=== PATIENT | female | born 1960 | race Caucasian/White ===

== ENCOUNTER 2017-12-24 16:26 | Observation (INO) | payer BC ==
[~2017-12-24] VITALS: Ht 172.7 cm; Wt 94.5 kg
[~2017-12-24 16:26] MED LIST: DIAZ5 PO; NORV5TAB PO; PERC5TAB12 PO
[2017-12-24 16:27] VITALS: BP 167/99; PULSE 112; RESP 14; TEMP 98.3; O2SAT 96
[2017-12-24] MEDS ORDERED: AMLO10 PO (17:51)
[2017-12-24] MEDS ORDERED: ZOLO25TA PO (17:51)
[2017-12-24] MEDS ORDERED: ALPR0.5T3 PO (17:51)
--- NOTE | 2017-12-24 17:58 | PD ---
HPI Chief Complaint: GI Complaint Time Seen by Provider: 17:51 Travel History International Travel<30 days: No Contact w/Intl Traveler<30days: No Traveled to known affect area: No History of Present Illness HPI 54-year-old female patient with history of hypertension, presents to the ER today with 1 day history of nausea, vomiting, diarrhea, general weakness and dizziness. Her states that her son-in-law has had some similar symptoms as well. She denies any fevers or any other issues. Modifying Factors: None Associated Signs & Symptoms: Nausea, vomiting, dizziness, diarrhea Risk Factors: Possible sick contact PFSH Past Medical History Anxiety: Yes Cardiovascular Problems: Yes (HTN) Diminished Hearing: No Hypertension: Yes Psychiatric: Yes Tetanus Vaccination: < 5 Years Influenza Vaccination: No Menopausal: Yes : 1 Para: 1 Past Surgical History Genitourinary Surgery: Yes (URETERAL REFLUX REPAIR) Hysterectomy: Yes Social History Alcohol Use: Yes (RARELY) Tobacco Use: No (quit 3 years ago) Substance Use: No Allergies-Medications (Allergen,Severity, Reaction): Coded Allergies: Sulfa (Sulfonamide Antibiotics) (Verified Allergy, Intermediate, rash, 10/29) Reported Meds & Prescriptions Reported Meds & Active Scripts Active Reported Zoloft (Sertraline HCl) 25 Mg Tab 25 Mg PO HS Alprazolam 0.5 Mg Tab 0.5 Mg PO Q8H PRN Norvasc (Amlodipine Besylate) 10 Mg Tab 10 Mg PO HS Review of Systems Except as stated in HPI: all other systems reviewed are Neg Physical Exam Narrative GENERAL: Well-developed elderly white female patient currently mild distress. Awake and oriented 3. SKIN: Focused skin assessment warm/dry. HEAD: Atraumatic. Normocephalic. EYES: Pupils equal and round. No scleral icterus. No injection or drainage. ENT: No nasal bleeding or discharge. Mucous membranes pink and moist. NECK: Trachea midline. No JVD. Supple. CARDIOVASCULAR: Regular rate and rhythm. No murmur appreciated. RESPIRATORY: No accessory muscle use. Clear to auscultation. Breath sounds equal bilaterally. GASTROINTESTINAL: Abdomen soft, non-tender, nondistended. Hepatic and splenic margins not palpable. MUSCULOSKELETAL: No obvious deformities. No clubbing. No cyanosis. No edema. NEUROLOGICAL: Awake and alert. No obvious cranial nerve deficits. Motor grossly within normal limits. Normal speech. PSYCHIATRIC: Appropriate mood and affect; insight and judgment normal. Data Data Last Documented VS Vital Signs Date Time Temp Pulse Resp B/P (MAP) Pulse Ox O2 Delivery O2 Flow Rate FiO2 12/24/17 17:50 16 12/24/17 16:27 98.3 112 167/99 (121) 96 Orders Orders Complete Blood Count With Diff (12/24/17 16:42) Comprehensive Metabolic Panel (12/24/17 16:42) Lipase (12/24/17 16:42) Prothrombin Time / Inr (Pt) (12/24/17 16:42) Act Partial Throm Time (Ptt) (12/24/17 16:42) Urinalysis - C+S If Indicated (12/24/17 16:42) Electrocardiogram (12/24/17 16:42) Influenzae A/B Antigen (12/24/17 16:42) Ckmb (Isoenzyme) Profile (12/24/17 16:42) Troponin I (12/24/17 16:42) Sodium Chlor 0.9% 1000 Ml Inj (Ns 1000 M (12/24/17 18:00) Ondansetron Inj (Zofran Inj) (12/24/17 18:00) Labs Laboratory Tests Test 12/24/17 18:00 White Blood Count 10.7 TH/MM3 Red Blood Count 4.99 MIL/MM3 Hemoglobin 15.2 GM/DL Hematocrit 43.5 % Mean Corpuscular Volume 87.1 FL Mean Corpuscular Hemoglobin 30.4 PG Mean Corpuscular Hemoglobin Concent 34.9 % Red Cell Distribution Width 12.8 % Platelet Count 209 TH/MM3 Mean Platelet Volume 8.6 FL Neutrophils (%) (Auto) 94.6 % Lymphocytes (%) (Auto) 2.8 % Monocytes (%) (Auto) 2.0 % Eosinophils (%) (Auto) 0.4 % Basophils (%) (Auto) 0.2 % Neutrophils # (Auto) 10.1 TH/MM3 Lymphocytes # (Auto) 0.3 TH/MM3 Monocytes # (Auto) 0.2 TH/MM3 Eosinophils # (Auto) 0.0 TH/MM3 Basophils # (Auto) 0.0 TH/MM3 CBC Comment DIFF FINAL Differential Comment Prothrombin Time 9.4 SEC Prothromb Time International Ratio 0.9 RATIO Activated Partial Thromboplast Time 21.7 SEC Blood Urea Nitrogen 21 MG/DL Creatinine 0.89 MG/DL Random Glucose 126 MG/DL Total Protein 7.9 GM/DL Albumin 3.8 GM/DL Calcium Level 8.4 MG/DL Alkaline Phosphatase 83 U/L Aspartate Amino Transf (AST/SGOT) 23 U/L Alanine Aminotransferase (ALT/SGPT) 35 U/L Total Bilirubin 0.5 MG/DL Sodium Level 139 MEQ/L Potassium Level 3.7 MEQ/L Chloride Level 105 MEQ/L Carbon Dioxide Level 25.3 MEQ/L Anion Gap 9 MEQ/L Estimat Glomerular Filtration Rate 65 ML/MIN Total Creatine Kinase 96 U/L Troponin I LESS THAN 0.02 NG/ML Lipase 144 U/L MDM Medical Decision Making Medical Screen Exam Complete: Yes Emergency Medical Condition: Yes Medical Record Reviewed: Yes Interpretation(s) Laboratory Tests Test 12/24/17 18:00 Neutrophils (%) (Auto) 94.6 % (16.0-70.0) Lymphocytes (%) (Auto) 2.8 % (9.0-44.0) Neutrophils # (Auto) 10.1 TH/MM3 (1.8-7.7) Lymphocytes # (Auto) 0.3 TH/MM3 (1.0-4.8) Prothrombin Time 9.4 SEC (9.8-11.6) Activated Partial Thromboplast Time 21.7 SEC (24.3-30.1) Blood Urea Nitrogen 21 MG/DL (7-18) Random Glucose 126 MG/DL (74-106) Calcium Level 8.4 MG/DL (8.5-10.1) Estimat Glomerular Filtration Rate 65 ML/MIN (>89) Troponin I LESS THAN 0.02 NG/ML Differential Diagnosis Gastroenteritis versus influenza versus gastritis versus pancreatitis versus dehydration versus metabolic issues Narrative Course Influenza testing is unremarkable. Abdomen is fairly benign. Lab work did not show significant leukocytosis or dehydration. Patient was given IV fluids and Zofran in the ER. Physician Communication Physician Communication Case is signed out to Dr. Jacobs at 7 PM pending UA. Reevaluation for disposition. Diagnosis Primary Impression: Nausea and vomiting Condition: Stable Marcello Juárez MD Dec 24, 2017 17:58
[2017-12-24] MEDS ORDERED: ONDANSETRON HCL 4 MG/2 ML VIAL IV PUSH ONE (18:00)
[2017-12-24] MEDS ORDERED: SODIUM CHLOR 0.9% 1000 ML INJ 1,000 ML IV ONE (18:00)
[2017-12-24 18:16] LABS: AUTOMATED NEUTROPHIL # 10.1 TH/MM3 (1.8-7.7); BASOPHIL % 0.2 % (0.0-2.0); EOSINOPHIL % 0.4 % (0.0-4.0); HEMATOCRIT 43.5 % (35.0-46.0); HEMOGLOBIN 15.2 GM/DL (11.6-15.3); LYMPH % 2.8 % (9.0-44.0); LYMPHOCYTE # 0.3 TH/MM3 (1.0-4.8); MEAN CELL VOLUME 87.1 FL (80.0-100.0); MEAN CORPUSCULAR HEMOGLOBIN 30.4 PG (27.0-34.0); MEAN CORPUSCULAR HGB CONC 34.9 % (32.0-36.0); MEAN PLATELET VOLUME 8.6 FL (7.0-11.0); MONOCYTE # 0.2 TH/MM3 (0-0.9); NEUT % 94.6 % (16.0-70.0); PLATELET COUNT 209 TH/MM3 (150-450); RED BLOOD COUNT 4.99 MIL/MM3 (4.00-5.30); RED CELL DISTRIBUTION WIDTH 12.8 % (11.6-17.2); WHITE BLOOD COUNT 10.7 TH/MM3 (4.0-11.0)
[2017-12-24 18:26] LABS: INTERNATIONAL NORMALIZED RATIO 0.9 RATIO; PROTHROMBIN TIME - PATIENT 9.4 SEC (9.8-11.6)
[2017-12-24 18:39] LABS: ALBUMIN 3.8 GM/DL (3.4-5.0); ALT (GPT) 35 U/L (10-53); AST (GOT) 23 U/L (15-37); BICARBONATE 25.3 MEQ/L (21.0-32.0); BLOOD UREA NITROGEN 21 MG/DL (7-18); CALCIUM 8.4 MG/DL (8.5-10.1); CHLORIDE 105 MEQ/L (98-107); CREATININE 0.89 MG/DL (0.50-1.00); GLOMERULAR FILTRATION RATE 65 ML/MIN (>89); GLUCOSE,RANDOM 126 MG/DL (74-106); SODIUM (NA) 139 MEQ/L (136-145)
[2017-12-24 18:43] LABS: ALKALINE PHOSPHATASE 83 U/L (45-117); TOTAL BILIRUBIN ADULT 0.5 MG/DL (0.2-1.0); TOTAL PROTEIN 7.9 GM/DL (6.4-8.2); TROPONIN I LESS THAN 0.02 NG/ML (0.02-0.05)
[2017-12-24 19:29] VITALS: BP 172/88; PULSE 100; RESP 18; O2SAT 96
--- NOTE | 2017-12-24 19:48 | PD ---
Physical Exam Narrative Received sign out from previous team to follow up with UA and reevaluate. 57yo F with HTN here with c/o nausea, vomiting, and nonbloody diarrhea. Pt has mild epigastric/xiphoid process region pain. Rest of abdominal exam is unremarkable. Labs reviewed, no leukocytosis. H/H normal. BUN/creatinine ratio mildly elevated at 21/0.89. Troponin negative. Lipase negative. Influenza negative. Zofran, protonix and NS IVF given. HR improved to 90s after NS IVF. Pt currently denies any fever, chest pain, sob. Pt given water and tolerating PO. UA negative for leukocyte. +Ketone. Pt reevaluated at bedside and said she has been having this discomfort in xyphoid process, lower mid sternum for a few days. Now she said she has been having some sob with exertion for the last few days. Said this was new. Pt follows with Dr. Mascorro and last stress test was 10/2017 and she said it was ok. Pt does have new EKG changes so will admit for observation for chest pain center. Will give aspirin. Data Data Last Documented VS Vital Signs Date Time Temp Pulse Resp B/P (MAP) Pulse Ox O2 Delivery O2 Flow Rate FiO2 12/24/17 19:29 100 18 172/88 (116) 96 Room Air 12/24/17 16:27 98.3 Orders Orders Complete Blood Count With Diff (12/24/17 16:42) Comprehensive Metabolic Panel (12/24/17 16:42) Lipase (12/24/17 16:42) Prothrombin Time / Inr (Pt) (12/24/17 16:42) Act Partial Throm Time (Ptt) (12/24/17 16:42) Urinalysis - C+S If Indicated (12/24/17 16:42) Influenzae A/B Antigen (12/24/17 16:42) Ckmb (Isoenzyme) Profile (12/24/17 16:42) Troponin I (12/24/17 16:42) Sodium Chlor 0.9% 1000 Ml Inj (Ns 1000 M (12/24/17 18:00) Ondansetron Inj (Zofran Inj) (12/24/17 18:00) Pantoprazole Inj (Protonix Inj) (12/24/17 20:00) Electrocardiogram (12/24/17 ) Chest, Single Ap (12/24/17 ) Aspirin (Aspirin) (12/24/17 21:30) Labs Laboratory Tests Test 12/24/17 18:00 12/24/17 19:00 White Blood Count 10.7 TH/MM3 Red Blood Count 4.99 MIL/MM3 Hemoglobin 15.2 GM/DL Hematocrit 43.5 % Mean Corpuscular Volume 87.1 FL Mean Corpuscular Hemoglobin 30.4 PG Mean Corpuscular Hemoglobin Concent 34.9 % Red Cell Distribution Width 12.8 % Platelet Count 209 TH/MM3 Mean Platelet Volume 8.6 FL Neutrophils (%) (Auto) 94.6 % Lymphocytes (%) (Auto) 2.8 % Monocytes (%) (Auto) 2.0 % Eosinophils (%) (Auto) 0.4 % Basophils (%) (Auto) 0.2 % Neutrophils # (Auto) 10.1 TH/MM3 Lymphocytes # (Auto) 0.3 TH/MM3 Monocytes # (Auto) 0.2 TH/MM3 Eosinophils # (Auto) 0.0 TH/MM3 Basophils # (Auto) 0.0 TH/MM3 CBC Comment DIFF FINAL Differential Comment Prothrombin Time 9.4 SEC Prothromb Time International Ratio 0.9 RATIO Activated Partial Thromboplast Time 21.7 SEC Blood Urea Nitrogen 21 MG/DL Creatinine 0.89 MG/DL Random Glucose 126 MG/DL Total Protein 7.9 GM/DL Albumin 3.8 GM/DL Calcium Level 8.4 MG/DL Alkaline Phosphatase 83 U/L Aspartate Amino Transf (AST/SGOT) 23 U/L Alanine Aminotransferase (ALT/SGPT) 35 U/L Total Bilirubin 0.5 MG/DL Sodium Level 139 MEQ/L Potassium Level 3.7 MEQ/L Chloride Level 105 MEQ/L Carbon Dioxide Level 25.3 MEQ/L Anion Gap 9 MEQ/L Estimat Glomerular Filtration Rate 65 ML/MIN Total Creatine Kinase 96 U/L Troponin I LESS THAN 0.02 NG/ML Lipase 144 U/L Urine Color LIGHT-YELLOW Urine Turbidity CLEAR Urine pH 6.5 Urine Specific [place] 1.011 Urine Protein NEG mg/dL Urine Glucose (UA) NEG mg/dL Urine Ketones 10 mg/dL Urine Occult Blood NEG Urine Nitrite NEG Urine Bilirubin NEG Urine Urobilinogen LESS THAN 2.0 MG/DL Urine Leukocyte Esterase NEG Urine RBC 2 /hpf Urine Squamous Epithelial Cells 1 /hpf Microscopic Urinalysis Comment CULT NOT INDICATED [facility] Supervised Visit with CHARLES: No Interpretation(s) EKG: NSR 83bpm. Normal axis. TWI III, V3. Nonspecific ST depression diffusely. Diagnosis Primary Impression: Chest pain Qualified Codes: R07.9 - Chest pain, unspecified Admitting Information Admitting Physician Requests: Observation Additional Instruction: Please follow up with your primary care physician in 2-3 days. Return to the ED if symptoms worsen. Med/Other Pt SpecificInfo: No Change to Meds Marian Jacobs DO Dec 24, 2017 19:48
[2017-12-24 19:59] LABS: BILIRUBIN, URINE NEG (NEG); BLOOD, URINE NEG (NEG); GLUCOSE,URINE NEG (NEG); KETONE, URINE 10 mg/dL (NEG); NITRITE,URINE NEG (NEG); PH, URINE 6.5 (5.0-8.5); SQUAMOUS EPITHELIAL CELL URINE 1 /hpf (0-5); URINE COLOR LIGHT-YELLOW (YELLW/STRAW); URINE LEUKOCYTE ESTERASE NEG (NEG)
[2017-12-24] MEDS ORDERED: PANTOPRAZOLE SODIUM 40 MG VIAL IV PUSH ONE (20:00)
[2017-12-24] MEDS ORDERED: ASPIRIN 325 MG TAB PO ONE (21:30)
[2017-12-24] MEDS ORDERED: SODIUM CHLORIDE 0.9% FLUSH 10 ML FLUSH IV FLUSH PRN (22:30)
--- NOTE | 2017-12-24 22:30 | RADRPT ---
EXAM DATE/TIME: 12/24/2017 21:43 [place] COMPARISON: No previous studies available for comparison. INDICATIONS : Chest pain. MEDICAL HISTORY : None. SURGICAL HISTORY : None. ENCOUNTER: Initial ACUITY: 3 days PAIN SCORE: 6/10 LOCATION: middle chest. FINDINGS: A single view of the chest demonstrates the lungs to be symmetrically aerated without evidence of mas s, infiltrate or effusion. The cardiomediastinal contours are unremarkable. Osseous structures are intact. CONCLUSION: No acute disease. Carlo Mcclain MD on December 24, 2017 at 22:27 Board Certified Radiologist. This report was verified electronically.
[2017-12-24] MEDS ORDERED: SERTRALINE HCL 50 MG TAB PO ONE (23:00)
[2017-12-24 23:59] VITALS: BP 124/70; PULSE 84; RESP 17; TEMP 99; O2SAT 93
[2017-12-25] VITALS (8 sets, daily range): BP systolic 114–136; BP diastolic 62–73; PULSE 71–84; RESP 17–24; TEMP 98.5–99.6; O2SAT 91–96
[2017-12-25] MEDS ORDERED: SODIUM CHLOR 0.9% 1000 ML INJ 1,000 ML IV SCH (09:29)
[2017-12-25] MEDS ORDERED: ONDANSETRON HCL 4 MG/2 ML VIAL IV PUSH PRN (09:30)
[2017-12-25] MEDS ORDERED: ALPRAZolam 0.5 MG TAB PO PRN (09:30)
--- NOTE | 2017-12-25 09:53 | HHI.HP ---
[facility] Primary Care Physician Dillon Jaramillo MD Chief Complaint Chest pain, nausea, vomiting, and diarrhea History of Present Illness This is a 57-year-old female with history of hypertension that presents with complaints of chest pain and GI upset. States that she has been having intermittent chest discomfort for the past week that feels like a dull ache. Points to the epigastric/subxiphoid region. States the last couple minutes in the time shortness of breath. She states she has had shortness of breath with walking for the last 2 weeks. Nothing in particular seems to bring on the chest discomfort. Also patient states that 2 days ago she began having diarrhea which she describes multiple episodes of large volume of watery stool. Then yesterday she was nauseous and vomited several times. Nonbilious nonbloody. She has had no further emesis while in the chest pain center but states she has had several watery bowel movements. She had been in [place] and was flying back when her GI symptoms began. She has since discovered that her daughter and son-in-law have similar symptoms. States she follows Dr. Mascorro and has done so for years secondary to an arrhythmia. Does not know further information. Believes she had a stress test October 2017 but does not know the results. Review of Systems General: Patient denies fevers, chills. Had recent travel to [place]. Began having nausea vomiting and diarrhea while coming back from [place]. HEENT: Patient denies headache, sore throat, difficulty swallowing. Cardiovascular: Has the chest discomfort as mentioned above. Denies sensation of heart beating rapidly or irregularly. No syncope. Denies diaphoresis. Respiratory: She has had shortness of breath with walking for the last 2 weeks. Denies inspirational chest discomfort. Denies coughing wheezing or hemoptysis. GI: Patient has had nausea, vomiting, diarrhea. Patient denies abdominal pain and bloody stools. Musculoskeletal: Patient denies joint pain or edema. Denies calf pain or edema. Neurovascular: Patient denies numbness, tingling, weakness in extremities. Denies headache. Endocrine: Denies polyuria and polydipsia. Hematologic: Denies easy bruising. Skin: Denies rash or itching. Past Family Social History Allergies: Coded Allergies: Sulfa (Sulfonamide Antibiotics) (Verified Allergy, Intermediate, rash, 10/29) Past Medical History Hypertension and anxiety. Denies hyperlipidemia, diabetes, and known CAD. Past Surgical History Hysterectomy. Reported Medications Reported Meds & Active Scripts Active Reported Zoloft (Sertraline HCl) 25 Mg Tab 25 Mg PO HS Alprazolam 0.5 Mg Tab 0.5 Mg PO Q8H PRN Norvasc (Amlodipine Besylate) 10 Mg Tab 10 Mg PO HS Active Ordered Medications Current Medications Medications (Trade) Dose Ordered Sig/[place] Route Start Time Stop Time Status Last Admin (NS Flush) 2 ml UNSCH PRN IV FLUSH 12/24/17 22:30 (NS Flush) 2 ml BID IV FLUSH 12/25/17 09:00 Sodium Chloride 1,000 ml @ 125 mls/hr Q8H IV 12/25/17 09:29 12/25/17 17:28 UNV (Zofran Inj) 4 mg Q6HR PRN IV PUSH 12/25/17 09:30 UNV (Xanax) 0.5 mg Q8H PRN PO 12/25/17 09:30 UNV (Norvasc) 10 mg HS PO 12/25/17 21:00 UNV (Zoloft) 25 mg HS PO 12/25/17 21:00 UNV Family History Denies family history of CAD. Social History Patient quit smoking 3 years ago. Rarely has alcohol. Denies illicit drugs. Physical Exam Vital Signs Vital Signs Date Time Temp Pulse Resp B/P (MAP) Pulse Ox O2 Delivery O2 Flow Rate FiO2 12/25/17 07:36 99.6 84 18 114/70 (85) 95 12/25/17 03:16 84 12/25/17 03:03 99.6 84 24 127/62 (83) 91 12/25/17 00:25 94 12/24/17 23:59 99.0 84 17 124/70 (88) 93 12/24/17 23:44 12/24/17 19:29 100 18 172/88 (116) 96 Room Air 12/24/17 17:50 16 12/24/17 16:27 98.3 112 14 167/99 (121) 96 Physical Exam GENERAL: This is a well-nourished, well-developed patient, in no apparent distress. Patient speaks in clear complete sentences. Patient is pleasant. HEENT: Head is atraumatic and normocephalic. Neck is supple without lymphadenopathy and trachea is midline. No JVD or carotid bruits. CARDIOVASCULAR: Regular rate and rhythm without murmurs, gallops, or rubs. RESPIRATORY: Clear to auscultation. Breath sounds equal bilaterally. No wheezes , rales, or rhonchi. Chest wall is nontender. No use of accessory muscles. GASTROINTESTINAL: Abdomen is nontender, nondistended. Abdomen soft. No obvious pulsatile mass or bruit. No CVA tenderness. Strong femoral pulses bilaterally. Normal bowel sounds in all quadrants. MUSCULOSKELETAL: Patient is moving upper and lower extremities freely. No calf tenderness or edema, no Homans sign. Strong pulses in upper and lower extremities. NEUROLOGICAL: Patient is alert and oriented. Cranial nerves 2-12 are grossly intact. No focal deficits and speech is clear. SKIN: No rash and turgor is normal. Laboratory Laboratory Tests Test 12/24/17 18:00 12/24/17 19:00 12/24/17 23:45 12/25/17 03:15 White Blood Count 10.7 Red Blood Count 4.99 Hemoglobin 15.2 Hematocrit 43.5 Mean Corpuscular Volume 87.1 Mean Corpuscular Hemoglobin 30.4 Mean Corpuscular Hemoglobin Concent 34.9 Red Cell Distribution Width 12.8 Platelet Count 209 Mean Platelet Volume 8.6 Neutrophils (%) (Auto) 94.6 Lymphocytes (%) (Auto) 2.8 Monocytes (%) (Auto) 2.0 Eosinophils (%) (Auto) 0.4 Basophils (%) (Auto) 0.2 Neutrophils # (Auto) 10.1 Lymphocytes # (Auto) 0.3 Monocytes # (Auto) 0.2 Eosinophils # (Auto) 0.0 Basophils # (Auto) 0.0 CBC Comment DIFF FINAL Differential Comment Prothrombin Time 9.4 Prothromb Time International Ratio 0.9 Activated Partial Thromboplast Time 21.7 Blood Urea Nitrogen 21 Creatinine 0.89 Random Glucose 126 Total Protein 7.9 Albumin 3.8 Calcium Level 8.4 Alkaline Phosphatase 83 Aspartate Amino Transf (AST/SGOT) 23 Alanine Aminotransferase (ALT/SGPT) 35 Total Bilirubin 0.5 Sodium Level 139 Potassium Level 3.7 Chloride Level 105 Carbon Dioxide Level 25.3 Anion Gap 9 Estimat Glomerular Filtration Rate 65 Total Creatine Kinase 96 Troponin I LESS THAN 0.02 LESS THAN 0.02 LESS THAN 0.02 Lipase 144 Urine Color LIGHT-YELLOW Urine Turbidity CLEAR Urine pH 6.5 Urine Specific [place] 1.011 Urine Protein NEG Urine Glucose (UA) NEG Urine Ketones 10 Urine Occult Blood NEG Urine Nitrite NEG Urine Bilirubin NEG Urine Urobilinogen LESS THAN 2.0 Urine Leukocyte Esterase NEG Urine RBC 2 Urine Squamous Epithelial Cells 1 Microscopic Urinalysis Comment CULT NOT INDICATED Date/Time Source Procedure Growth Status 12/24/17 18:00 Nasal Washing Influenza Types A,B Antigen (ADOLFO) - Final NEGATIVE FOR FLU A AND B ANTIGEN.... Complete Result Diagram: 12/24/17 1800 12/24/17 1800 Imaging Last 48 hours Impressions Chest X-Ray 12/24/17 0000 Signed Impressions: Service Date/Time: Sunday, December 24, 2017 21:43 - CONCLUSION: No acute disease. Carlo Mcclain MD Course EKGs are sinus rhythm with nonspecific inferolateral ST changes. Caprini VTE Risk Assessment Caprini VTE Risk Assessment: No/Low Risk (score <= 1) Caprini Risk Assessment Model Point Value = 1 Point Value = 2 Point Value = 3 Point Value = 5 Age 41-60 Minor surgery BMI > 25 kg/m2 Swollen legs Varicose veins or History of unexplained or recurrent spontaneous Oral contraceptives or hormone replacement Sepsis (< 1 month) Serious lung disease, including pneumonia (< 1 month) Abnormal pulmonary function Acute myocardial infarction Congestive heart failure (< 1 month) History of inflammatory bowel disease Medical patient at bed rest Age 61-74 Arthroscopic surgery Major open surgery (> 45 min) Laparoscopic surgery (> 45 min) Malignancy Confined to bed (> 72 hours) Immobilizing plaster cast Central venous access Age >= 75 History of VTE Family history of VTE Factor V Leiden Prothrombin [id number] Lupus anticoagulant Anticardiolipin antibodies Elevated serum homocysteine Heparin-induced thrombocytopenia Other congenital or acquired thrombophilia Stroke (< 1 month) Elective arthroplasty Hip, pelvis, or leg fracture Acute spinal cord injury (< 1 month) Prophylaxis Regimen Total Risk Factor Score Risk Level Prophylaxis Regimen 0-1 Low Early ambulation 2 Moderate Order ONE of the following: *Sequential Compression Device (SCD) *Heparin 5000 units SQ BID 3-4 Higher Order ONE of the following medications: *Heparin 5000 units SQ TID *Enoxaparin/Lovenox 40 mg SQ daily (WT < 150 kg, CrCl > 30 mL/min) *Enoxaparin/Lovenox 30 mg SQ daily (WT < 150 kg, CrCl > 10-29 mL/min) *Enoxaparin/Lovenox 30 mg SQ BID (WT < 150 kg, CrCl > 30 mL/min) AND/OR *Sequential Compression Device (SCD) 5 or more Highest Order ONE of the following medications: *Heparin 5000 units SQ TID (Preferred with Epidurals) *Enoxaparin/Lovenox 40 mg SQ daily (WT < 150 kg, CrCl > 30 mL/min) *Enoxaparin/Lovenox 30 mg SQ daily (WT < 150 kg, CrCl > 10-29 mL/min) *Enoxaparin/Lovenox 30 mg SQ BID (WT < 150 kg, CrCl > 30 mL/min) AND *Sequential Compression Device (SCD) Assessment and Plan Assessment and Plan * Chest pain: Patient has had serial cardiac enzymes and EKGs for ruling out purposes. She was seen by Dr. Winchester of cardiology and the chest pain center. I discussed this patient with Dr. ortega who is covering for Dr. Mascorro and he has requested that the patient be admitted to [facility] and consult him and he will see the patient shortly. Patient is agreeable to this plan. * Hypertension: We will resume her medication. * Likely viral illness: Patient says nausea vomiting and diarrhea. There are sick contacts. We will give IV hydration. Patient is stable at this time. She is agreeable to this plan. Nixon Fermin Dec 25, 2017 09:53
[2017-12-25] MEDS ORDERED: PILL SPLITTER OTHER PRN (11:30)
[2017-12-25] MEDS: SODIUM CHLORIDE 0.9% FLUSH 10 ML FLUSH IV FLUSH SCH ×2 (11:30→20:36)
--- NOTE | 2017-12-25 18:04 | EKG ---
Date Performed: 12/25/2017 Time Performed: 03:10:34 PTAGE: 57 years EKG: Sinus rhythm WITH FIRST DEGREE AV BLOCK NONSPECIFIC ST & T-WAVE ABNORMALITY ABNORMAL ECG Since PREVIOUS TRACING , no significant change noted PREVIOUS TRACIN12/24/2017 23.53 DOCTOR: Dolly Winchester Interpretating Date/Time 12/25/2017 18:03:11
--- NOTE | 2017-12-25 18:05 | EKG ---
Date Performed: 12/24/2017 Time Performed: 23:53:51 PTAGE: 57 years EKG: Sinus rhythm NONSPECIFIC ST & T-WAVE ABNORMALITY BORDERLINE ECG Since PREVIOUS TRACING , no significant change noted PREVIOUS TRACIN06/25/2014 13.20 DOCTOR: Dolly Winchester Interpretating Date/Time 12/25/2017 18:04:41
--- NOTE | 2017-12-25 18:09 | EKG ---
Date Performed: 12/24/2017 Time Performed: 21:17:46 PTAGE: 57 years EKG: Sinus rhythm WITH FIRST DEGREE AV BLOCK NONSPECIFIC ST & T-WAVE ABNORMALITY ABNORMAL ECG Since PREVIOUS TRACING , no significant change noted DOCTOR: Dolly Winchester Interpretating Date/Time 12/25/2017 18:06:42
--- NOTE | 2017-12-25 18:57 | MB ---
cc: YEISON TRAMMELL MD DATE OF CONSULTATION 12/25/17 HISTORY OF PRESENT ILLNESS Ms. Roberts is a 57 year old white female with history of hypertension, of bicuspid aortic valve who presented with nausea, vomiting, diarrhea and substernal chest discomfort. She was returning from a [place] trip when her symptoms started. Her daughter and her son-in-law had similar symptoms. The patient is currently pain free. PAST MEDICAL HISTORY 1. Hypertension 2. Previous chest pain, palpitations, 3. Shortness of breath. 4. Bicuspid aortic valve. 5. Anxiety depression, 6. Hysterectomy, 7. Bladder surgery 8. Right knee surgery. MEDICATIONS 1. Norvasc. 2. Alprazolam. 3. Zoloft. SOCIAL HISTORY The patient does not smoke but used to smoke in the past. She drinks alcohol occasionally. She quit smoking in May 2014. ALLERGIES SULFA FAMILY HISTORY Negative for heart disease. REVIEW OF SYSTEMS Otherwise negative. PHYSICAL EXAMINATION VITAL SIGNS: Blood pressure 128/65, pulse 71 and regular. HEENT: Negative. 2+ carotid upstrokes. No bruits. LUNGS: Clear. HEART: Regular with no murmur, gallop or rub. ABDOMEN: Soft, no bruits. EXTREMITIES: Without edema. 2+ distal pulses NEUROLOGIC" Grossly nonfocal. CARDIOLOGY STUDIES EKG was reviewed and showed normal sinus rhythm with normal axis intervals and nonspecific ST-T changes. LABORATORY DATA Hemoglobin 15.2, potassium 3.7, creatinine 0.9, troponin negative x3. AST and ALT normal. DIAGNOSES 1. Atypical chest pain. 2. Suspected viral illness with vomiting and diarrhea. 3. Hypertension 4. Anxiety and depression DISPOSITION Ms. Roberts presented with atypical chest discomfort. She has been ruled out for myocardial infarction by enzymes. Her chest pain is now resolved. She wishes to be discharged home as soon as possible. She has been hydrated due to her recent nausea and vomiting resulting in dehydration. I will follow her for cardiology during hospitalization. She will be scheduled for an outpatient stress test after discharge. She will follow up with Dr. Mascorro, her primary wrecker operator, in his office in the near future as well. Yeison Trammell MD OMaureen/ /5:59 PM /6:29 PM
[2017-12-25] MEDS ORDERED: SERTRALINE HCL 50 MG TAB PO SCH (21:00)
[2017-12-26 00:29] VITALS: BP 142/64; PULSE 79; RESP 17; TEMP 98.5; O2SAT 95
[2017-12-26 05:30] VITALS: BP 105/57; PULSE 79; RESP 17; TEMP 97.8; O2SAT 95
[2017-12-26] MEDS: SODIUM CHLORIDE 0.9% FLUSH 10 ML FLUSH IV FLUSH SCH (07:31)
[2017-12-26 08:11] VITALS: PULSE 76
[2017-12-26 08:39] VITALS: BP 120/65; PULSE 68; RESP 20; TEMP 98.1; O2SAT 93
--- NOTE | 2017-12-26 10:20 | HHI.DS ---
Discharge Summary Admission Date Dec 24, 2017 at 22:18 Discharge Date: Dec 26, 2017 Admitting Diagnosis Chest pain (1) Nausea ICD Code: R11.0 - Nausea (2) Atypical chest pain ICD Code: R07.89 - Other chest pain Procedures No procedures Brief History - From Admission This is a 57-year-old female with history of hypertension that presents with complaints of chest pain and GI upset. States that she has been having intermittent chest discomfort for the past week that feels like a dull ache. Points to the epigastric/subxiphoid region. States the last couple minutes in the time shortness of breath. She states she has had shortness of breath with walking for the last 2 weeks. Nothing in particular seems to bring on the chest discomfort. Also patient states that 2 days ago she began having diarrhea which she describes multiple episodes of large volume of watery stool. Then yesterday she was nauseous and vomited several times. Nonbilious nonbloody. She has had no further emesis while in the chest pain center but states she has had several watery bowel movements. She had been in [place] and was flying back when her GI symptoms began. She has since discovered that her daughter and son-in-law have similar symptoms. States she follows Dr. Mascorro and has done so for years secondary to an arrhythmia. Does not know further information. Believes she had a stress test October 2017 but does not know the results. CBC/BMP: 12/24/17 1800 12/24/17 1800 Significant Findings Laboratory Tests Test 12/24/17 18:00 12/24/17 19:00 12/24/17 23:45 12/25/17 03:15 Neutrophils (%) (Auto) 94.6 % (16.0-70.0) Lymphocytes (%) (Auto) 2.8 % (9.0-44.0) Neutrophils # (Auto) 10.1 TH/MM3 (1.8-7.7) Lymphocytes # (Auto) 0.3 TH/MM3 (1.0-4.8) Prothrombin Time 9.4 SEC (9.8-11.6) Activated Partial Thromboplast Time 21.7 SEC (24.3-30.1) Blood Urea Nitrogen 21 MG/DL (7-18) Random Glucose 126 MG/DL (74-106) Calcium Level 8.4 MG/DL (8.5-10.1) Estimat Glomerular Filtration Rate 65 ML/MIN (>89) Troponin I LESS THAN 0.02 NG/ML LESS THAN 0.02 NG/ML LESS THAN 0.02 NG/ML Urine Ketones 10 mg/dL (NEG) Test 12/25/17 10:27 Imaging Last Impressions Chest X-Ray 12/24/17 0000 Signed Impressions: Service Date/Time: Sunday, December 24, 2017 21:43 - CONCLUSION: No acute disease. Carlo Mcclain MD PE at Discharge GENERAL: This is a well-nourished, well-developed patient, in no apparent distress. Patient speaks in clear complete sentences. Patient is pleasant. CARDIOVASCULAR: Regular rate and rhythm without murmurs, gallops, or rubs. RESPIRATORY: Clear to auscultation. Breath sounds equal bilaterally. No wheezes , rales, or rhonchi. Chest wall is nontender. No use of accessory muscles. GASTROINTESTINAL: Abdomen is nontender, nondistended. Abdomen soft. No obvious pulsatile mass or bruit. No CVA tenderness. Strong femoral pulses bilaterally. Normal bowel sounds in all quadrants. MUSCULOSKELETAL: Patient is moving upper and lower extremities freely. No calf tenderness or edema, no Homans sign. Strong pulses in upper and lower extremities. NEUROLOGICAL: Patient is alert and oriented. Cranial nerves 2-12 are grossly intact. No focal deficits and speech is clear. SKIN: No rash and turgor is normal. * Chest pain: Patient has had serial cardiac enzymes and EKGs for ruling out purposes. She was seen by Dr. Winchester of cardiology and the chest pain center. I discussed this patient with Dr. ortega who is covering for Dr. Mascorro and he has requested that the patient be admitted to [facility] and consult him and he will see the patient shortly. Patient is agreeable to this plan. * Hypertension: We will resume her medication. * Likely viral illness: Patient says nausea vomiting and diarrhea. There are sick contacts. We will give IV hydration. Patient is stable at this time. She is agreeable to this plan. Pt update on day of discharge No events overnight Tolerates food Cleared by cardiology for discharge, to have stress test as outpatient with . follow up with him as outpatient Hospital Course Atypical chest pain: Patient has had serial cardiac enzymes and EKGs for ruling out purposes all negative. Patient was also nauseated and did vomit however improved with IV hydration and she tolerates food. Was cleared by cardiology for discharge. Patient to have stress test as outpatient. To follow-up in office with Dr. Mascorro cardio. Pt Condition on Discharge: Stable Discharge Disposition: Discharge Home Discharge Time: > 30 minutes Discharge Instructions DIET: Follow Instructions for: Heart Healthy Diet Activities you can perform: Regular-No Restrictions Follow up Referrals: Cardiology - 1 Week with Ariadne Mascorro MD Cardiology PCP Follow-up - 2-3 Days PCP Follow-up New Medications: Ondansetron Liq (Zofran Liq) 4 Mg/5 Ml Soln 4 MG PO Q8H PRN for NAUSEA OR VOMITING, #30 ML 0 Refills Continued Medications: Alprazolam (Alprazolam) 0.5 Mg Tab 0.5 MG PO Q8H PRN for ANXIETY, TAB 0 Refills Amlodipine (Norvasc) 10 Mg Tab 10 MG PO HS for Blood Pressure Management, #30 TAB 0 Refills Sertraline (Zoloft) 25 Mg Tab 25 MG PO HS, #30 TAB 0 Refills Kristyn Leblanc MD Dec 26, 2017 10:20
[2017-12-26 12:15] VITALS: O2SAT 93
[2017-12-26] MEDS ORDERED: ZOFR4SOL PO (12:35)
== END 2017-12-26 13:48 | disposition home or self-care (01) ==
LOC: NEPE 16:26 → NEDA 22:18 → NEPGCP 23:30 → N05A 12-25 13:56
PROVIDERS: ADMIT Hospitalist; ATTEND Hospitalist
DX: R07.89 Other chest pain (principal); I10 Essential (primary) hypertension; R11.2 Nausea with vomiting, unspecified; R19.7 Diarrhea, unspecified; R06.02 Shortness of breath; K30 Functional dyspepsia; I44.0 Atrioventricular block, first degree; R94.31 Abnormal electrocardiogram [ECG] [EKG]; R53.1 Weakness; R42 Dizziness and giddiness; Q23.1 Congenital insufficiency of aortic valve; F41.9 Anxiety disorder, unspecified; F32.9 Major depressive disorder, single episode, unspecified; Z79.899 Other long term (current) drug therapy; Z87.891 Personal history of nicotine dependence; Z88.2 Allergy status to sulfonamides
CPT/HCPCS: 71045; 80053; 81001; 82550; 83690; 84484; 85025; 85610; 85730; 87493; 87804; 93005; 96361; 96374; 96375; 99285; C9113; G0378; J2405; J7030